=== PATIENT | male | born 1980 | race Caucasian/White ===

== ENCOUNTER 2017-01-05 16:05 | Emergency (ER) | payer OTHER ==
[~2017-01-05] VITALS: Ht 185.4 cm; Wt 86.2 kg
[2017-01-05 16:08] VITALS: BP 127/87
[2017-01-05] MEDS ORDERED: KEFLEX500 MG PO (16:25)
[2017-01-05] MEDS ORDERED: NORCO 5-325 TA1 EACH PO (16:28)
== END 2017-01-05 16:27 | disposition home or self-care (01) ==
LOC: ER 16:05
DX: T23.202A Burn of second degree of left hand, unspecified site, initial encounter (principal); F10.99 Alcohol use, unspecified with unspecified alcohol-induced disorder; X12.XXXA Contact with other hot fluids, initial encounter; Y93.89 Activity, other specified; Y92.89 Other specified places as the place of occurrence of the external cause; Y99.8 Other external cause status

== ENCOUNTER → 2017-01-11 | Outpatient (CLI) | payer OTHER ==
[~2017-01-11] MED LIST: KEFLEX500 MG PO; NORCO 5-325 TA1 EACH PO
== END ==
LOC: HYPER 01-10 09:32
DX: T23.072A Burn of unspecified degree of left wrist, initial encounter (principal); T31.0 Burns involving less than 10% of body surface; Z87.891 Personal history of nicotine dependence; Z72.89 Other problems related to lifestyle; X12.XXXA Contact with other hot fluids, initial encounter; Y93.89 Activity, other specified; Y92.89 Other specified places as the place of occurrence of the external cause; Y99.8 Other external cause status